=== PATIENT | male | born 1940 | race Caucasian/White ===

== ENCOUNTER → 2017-09-09 | Day surgery (SDC) | payer OTHER ==
[2017-08-19 12:58] VITALS: Ht 170.2 cm; Wt 104.5 kg
[~2017-09-09] VITALS: Ht 170.2 cm; Wt 104.5 kg
[~2017-09-09] MED LIST: 500ML BSS 0.3ML EPI 1:1000PF IRRIG ONE; ACETAMINOPHEN 325 MG TAB PO PRN; AMVISC PLUS 0.8ML SYRINGE INT OCU ONE; ASPI81TA28 PO; ATROPINE SULFATE 0.1 MG/ML 5ML SYR IV PRN; BSS FLUSH ONE; EpHEDrine SULFATE INJ 50 MG/ML AMP IV PRN; EpINEphrine INJ 1MG/ML AMP 1 MG/ML AMP ONE; FENTANYL CITRATE INJ 50 MCG/1 ML 2 ML VIAL IV PRN; FLUMAZENIL 0.1 MG/1 ML 10 ML VIAL IV PRN; HYDR12.56 PO; HYDROmorphone INJ 2 MG/ML SYR/VIAL IV PRN; LABETALOL HCL IV 5 MG/ML 20ML IV PRN; LACTATED RINGER'S 1000ML 500 ML IV SCH; LIDOCAINE 3.5% OPH GEL PER APPLICATION CHARGE ONE; LIDOCAINE HCL 1% MPF 2 ML VIAL ONE; MEPERIDINE HCL 25 MG/ML CARP IV PRN; MIDAZOLAM HCL 1 MG/ML 2ML VIAL ONE; MULT-506 PO; NALOXONE HCL 0.4 MG/1 ML VIAL/CARP IV PRN; OCUCOAT 1 ML SOLN IO ONE; ONDANSETRON INJ 2 MG/ML 2 ML VIAL IV PRN; PHENYLEPHRINE 100MCG/ML 5ML SYR IV PRN; POVIDONE-IODINE OP SOLN 30 ML BTL ONE; PROPARACAINE 0.5% OP SOLN PER DROP CHARGE OPR SCH; TOBRAMYCIN/DEXAMETHASONE OPH OINT PER APPLN CHARGE ONE
[2017-09-09] MEDS: PHENYLEPHRINE HCL 2.5% OP SOLN PER DROP CHARGE OPR SCH ×2 (08:43→08:49)
[2017-09-09] MEDS: TROPICAMIDE 1% OP SOLN PER DROP CHARGE OPR SCH ×2 (08:44→08:50)
[2017-09-09] MEDS: CYCLOPENTOLATE HCL 1% OP SOLN PER DROP CHARGE OPR SCH ×2 (08:45→08:51)
[2017-09-09] MEDS: KETOROLAC 0.5% OP SOLN PER DROP CHARGE OPR SCH ×2 (08:46→08:52)
[2017-09-09] MEDS: GATIFLOXACIN OP SOLN PER DROP CHARGE OPR SCH ×2 (08:47→08:57)
--- NOTE | 2017-09-09 09:07 | History & Physical Bridge - [place] ---
H&P Re-Evaluation Bridge Note: I have examined the patient, reviewed the History & Physical and in the interval since the performance of the History & Physical I have noted the following changes of clinical significance: Diagnosis: Right Cataract Procedure: Right Cataract Removal with Lens Implant No changes noted
--- NOTE | 2017-09-09 09:49 | [facility] Operative Report ---
Operative Report Date of Service Sep 09, 2017. Operative Report 1. PREOPERATIVE DIAGNOSIS: Cataract of the right eye. 2. POSTOPERATIVE DIAGNOSIS: Same. 3. PROCEDURE: Phacoemulsification with intraocular lens implantation of the right eye. SURGEON: Dr. Umair Rucker. ANESTHESIA: Topical Lidocaine gel, 1% Non- Preserved intracameral Lidocaine, and monitored intravenous sedation. INDICATIONS FOR THE PROCEDURE: The patient is a 77 - year-old male with a history of cataract of the right eye causing significant visual impairment. The details of the proposed procedure were explained to the patient who asked appropriate questions and following discussion of all risks, benefits and alternatives agreed to have the procedure done. 4. OPERATION AND FINDINGS: DESCRIPTION OF PROCEDURE: After informed consent was obtained, the patient was brought to the Operating Room at the [facility]. The patient was placed in a supine position and then the right eye was prepped and draped in the usual sterile fashion for intraocular surgery. A drop of topical Lidocaine gel was placed in the operative eye. A wire lid speculum was then placed in the fornices. A corneal paracentesis was then created temporally. The Non-Preserved Lidocaine was then instilled into the anterior chamber. The anterior chamber was then pressurized with viscoelastic. A 2.0 mm clear corneal incision was then created temporally. A cystotome was inserted into the anterior chamber and used to create a tear in the anterior lens capsule. This capsular tear was then used to create a small flap and the flap was dragged in a counterclockwise direction in order to create a continuous curvilinear capsulorrhexis. Hydrodissection was accomplished with balanced salt solution. Phacoemulsification of the lens nucleus was then performed in a standard [id number] technique. The phaco time was 24 seconds with an average power of 11 %. The remaining cortical material was removed using irrigation aspiration. The capsular bag was then filled with viscoelastic. A [employer]ch [employer] Lomb MI60L +18.5 diopters lens was then loaded into the injector and injected into the capsular bag. The remaining viscoelastic was removed with the irrigation aspiration handpiece. The wound was hydrated and then checked and found to be watertight. The intraocular pressure was checked and found to be adequate. The wire lid speculum was removed and the patient's face was cleaned and dried. TobraDex ointment was placed in the inferior fornix. The patient was discharged to the Recovery Room having tolerated the procedure well. There were no complications. The patient will be seen tomorrow in the office for follow-up. I attest to the content of the Intraoperative Record and any orders documented therein. Any exceptions are noted below.
--- NOTE | 2017-09-09 09:50 | Discharge Instructions-SurgCtr ---
Discharge Instructions Date of Service Sep 09, 2017. Visit Reason for Visit: Cataract Right Eye Discharge Discharge Diagnosis / Problem: cataract Discharge Goals Goal(s): Improve function Activity Recommendations Activity Limitations: per Instructions/Follow-up section Anesthesia . Post Anesthesia Instructions: If you have had General Anesthesia or IV Sedation: * Do not drive today. * Resume driving when surgeon permits. * Do not make important decisions or sign legal documents today. * Call surgeon for: 1. Temperature elevations greater than 101 degrees F. 2. Uncontrollable pain. 3. Excessive bleeding. 4. Persistent nausea and vomiting. 5. Medication intolerance (nausea, vomiting or rash). * For nausea and vomiting use only clear liquids such as: tea, soda, bouillon until nausea subsides, then gradually increase diet as tolerated. * If you have any concerns or questions, call your surgeon's office. If physician is unavailable and it is an emergency, call 911 or go to the nearest emergency room. . Diet Recommendations Home Diet: resume previous diet Procedures Procedures Performed: Right Cataract Phacoemulsification With Intraocular Lens Implant Pending Studies Studies pending at discharge: no Medical Emergencies . Who to Call and When: Medical Emergencies: If at any time you feel your situation is an emergency, please call 911 immediately. . Non-Emergent Contact Non-Emergency issues call your: Pl Sql Programmer . . "Provider Documentation" section prepared by Umair Rucker. .
[2017-09-09 09:51] VITALS: TEMP 36.2
[2017-09-09 10:14] VITALS: BP 137/72; PULSE 64; O2SAT 95
--- NOTE | 2017-09-09 10:16 | Anesthesia Progress Nt - [facility] ---
Anesthesia Post Op Note Date & Time Sep 09, 2017 at 10:16 Vital Signs Pain Intensity: 0 Vital Signs Past 12 Hours Date Time Temp Pulse Resp B/P (MAP) Pulse Ox O2 Delivery O2 Flow Rate FiO2 09/09/17 10:14 64 20 137/72 (93) 95 Room Air 09/09/17 09:51 36.2 60 16 141/80 (100) 96 Room Air 09/09/17 08:38 36.9 65 16 154/85 (108) 94 Room Air Notes Mental Status: alert / awake / arousable, participated in evaluation Pt Amnestic to Procedure: Yes Nausea / Vomiting: adequately controlled Pain: adequately controlled Airway Patency, RR, SpO2: stable & adequate BP & HR: stable & adequate Hydration State: stable & adequate Anesthetic Complications: no major complications apparent
== END | disposition home or self-care (01) ==
LOC: X.SURG 07:50
PROVIDERS: ATTEND Ophthalmology
DX: H25.012 Cortical age-related cataract, left eye (principal); Z79.82 Long term (current) use of aspirin; Z86.010 Personal history of colon polyps; Z82.3 Family history of stroke; Z83.3 Family history of diabetes mellitus; Z83.2 Family history of diseases of the blood and blood-forming organs and certain disorders involving the immune mechanism; I12.9 Hypertensive chronic kidney disease with stage 1 through stage 4 chronic kidney disease, or unspecified chronic kidney disease; N18.3 Chronic kidney disease, stage 3 (moderate); E78.5 Hyperlipidemia, unspecified; G47.33 Obstructive sleep apnea (adult) (pediatric); E66.9 Obesity, unspecified

== ENCOUNTER → 2017-09-23 | Day surgery (SDC) | payer OTHER ==
[2017-09-15 11:51] VITALS: Ht 170.2 cm; Wt 104.5 kg
[~2017-09-23] VITALS: Ht 170.2 cm; Wt 104.5 kg
[~2017-09-23] MED LIST changes: -FENTANYL CITRATE INJ 50 MCG/1 ML 2 ML VIAL IV PRN; -FLUMAZENIL 0.1 MG/1 ML 10 ML VIAL IV PRN; -HYDROmorphone INJ 2 MG/ML SYR/VIAL IV PRN; -LABETALOL HCL IV 5 MG/ML 20ML IV PRN; +LIDOCAINE HCL 2% 2 ML VIAL (20MG/ML) ONE; -MEPERIDINE HCL 25 MG/ML CARP IV PRN; -NALOXONE HCL 0.4 MG/1 ML VIAL/CARP IV PRN; -PHENYLEPHRINE 100MCG/ML 5ML SYR IV PRN; +PROPARACAINE 0.5% OP SOLN PER DROP CHARGE OPL SCH; -PROPARACAINE 0.5% OP SOLN PER DROP CHARGE OPR SCH; +PROPOFOL IV EMULSION 10 MG/ML 20 ML VIAL IV ONE
[2017-09-23] MEDS: GATIFLOXACIN OP SOLN PER DROP CHARGE OPL SCH ×2 (08:48→09:08)
[2017-09-23] MEDS: PHENYLEPHRINE HCL 2.5% OP SOLN PER DROP CHARGE OPL SCH ×2 (08:54→08:59)
[2017-09-23] MEDS: TROPICAMIDE 1% OP SOLN PER DROP CHARGE OPL SCH ×2 (08:55→09:00)
[2017-09-23] MEDS: CYCLOPENTOLATE HCL 1% OP SOLN PER DROP CHARGE OPL SCH ×2 (08:56→09:01)
[2017-09-23] MEDS: KETOROLAC 0.5% OP SOLN PER DROP CHARGE OPL SCH ×2 (08:57→09:02)
--- NOTE | 2017-09-23 09:47 | History & Physical Bridge - [place] ---
H&P Re-Evaluation Bridge Note: I have examined the patient, reviewed the History & Physical and in the interval since the performance of the History & Physical I have noted the following changes of clinical significance: No changes noted
--- NOTE | 2017-09-23 10:20 | [facility] Operative Report ---
Operative Report Date of Service Sep 23, 2017. Operative Report 1. PREOPERATIVE DIAGNOSIS: Cataract of the left eye. 2. POSTOPERATIVE DIAGNOSIS: Same. 3. PROCEDURE: Phacoemulsification with intraocular lens implantation of the left eye. SURGEON: Dr. Umair Rucker. ANESTHESIA: Topical Lidocaine gel, 1% Non- Preserved intracameral Lidocaine, and monitored intravenous sedation. INDICATIONS FOR THE PROCEDURE: The patient is a 77 - year-old male with a history of cataract of the left eye causing significant visual impairment. The details of the proposed procedure were explained to the patient who asked appropriate questions and following discussion of all risks, benefits and alternatives agreed to have the procedure done. 4. OPERATION AND FINDINGS: DESCRIPTION OF PROCEDURE: After informed consent was obtained, the patient was brought to the Operating Room at the [facility]. The patient was placed in a supine position and then the left eye was prepped and draped in the usual sterile fashion for intraocular surgery. A drop of topical Lidocaine gel was placed in the operative eye. A wire lid speculum was then placed in the fornices. A corneal paracentesis was then created temporally. The Non-Preserved Lidocaine was then instilled into the anterior chamber. The anterior chamber was then pressurized with viscoelastic. A 2.0 mm clear corneal incision was then created temporally. A cystotome was inserted into the anterior chamber and used to create a tear in the anterior lens capsule. This capsular tear was then used to create a small flap and the flap was dragged in a counterclockwise direction in order to create a continuous curvilinear capsulorrhexis. Hydrodissection was accomplished with balanced salt solution. Phacoemulsification of the lens nucleus was then performed in a standard [id number] technique. The phaco time was 22 seconds with an average power of 11 %. The remaining cortical material was removed using irrigation aspiration. The capsular bag was then filled with viscoelastic. A Bausch [employer] Lomb MI60L +14.0 diopters lens was then loaded into the injector and injected into the capsular bag. The remaining viscoelastic was removed with the irrigation aspiration handpiece. The wound was hydrated and then checked and found to be watertight. The intraocular pressure was checked and found to be adequate. The wire lid speculum was removed and the patient's face was cleaned and dried. TobraDex ointment was placed in the inferior fornix. The patient was discharged to the Recovery Room having tolerated the procedure well. There were no complications. The patient will be seen tomorrow in the office for follow-up. I attest to the content of the Intraoperative Record and any orders documented therein. Any exceptions are noted below.
--- NOTE | 2017-09-23 10:21 | Discharge Instructions-SurgCtr ---
Discharge Instructions Date of Service Sep 23, 2017. Visit Reason for Visit: Cataract Left Eye Discharge Discharge Diagnosis / Problem: cataract Discharge Goals Goal(s): Improve function Activity Recommendations Activity Limitations: per Instructions/Follow-up section Anesthesia . Post Anesthesia Instructions: If you have had General Anesthesia or IV Sedation: * Do not drive today. * Resume driving when surgeon permits. * Do not make important decisions or sign legal documents today. * Call surgeon for: 1. Temperature elevations greater than 101 degrees F. 2. Uncontrollable pain. 3. Excessive bleeding. 4. Persistent nausea and vomiting. 5. Medication intolerance (nausea, vomiting or rash). * For nausea and vomiting use only clear liquids such as: tea, soda, bouillon until nausea subsides, then gradually increase diet as tolerated. * If you have any concerns or questions, call your surgeon's office. If physician is unavailable and it is an emergency, call 911 or go to the nearest emergency room. . Diet Recommendations Home Diet: resume previous diet Procedures Procedures Performed: Left Cataract Phacoemulsification With Intraocular Lens Implant Pending Studies Studies pending at discharge: no Medical Emergencies . Who to Call and When: Medical Emergencies: If at any time you feel your situation is an emergency, please call 911 immediately. . Non-Emergent Contact Non-Emergency issues call your: Property Management Assistant . . "Provider Documentation" section prepared by Umair Rucker. .
[2017-09-23 10:24] VITALS: BP 124/65; PULSE 66; TEMP 37; O2SAT 96
--- NOTE | 2017-09-23 10:40 | Anesthesia Progress Nt - [facility] ---
Anesthesia Post Op Note Date & Time Sep 23, 2017 at 10:40 Vital Signs Pain Intensity: 0 Vital Signs Past 12 Hours Date Time Temp Pulse Resp B/P (MAP) Pulse Ox O2 Delivery O2 Flow Rate FiO2 09/23/17 10:24 37.0 66 12 124/65 (84) 96 Room Air 09/23/17 08:47 36.7 64 16 150/84 (106) 93 Room Air Notes Mental Status: alert / awake / arousable, participated in evaluation Pt Amnestic to Procedure: Yes Nausea / Vomiting: adequately controlled Pain: adequately controlled Airway Patency, RR, SpO2: stable & adequate BP & HR: stable & adequate Hydration State: stable & adequate Anesthetic Complications: no major complications apparent
== END | disposition home or self-care (01) ==
LOC: X.SURG 08:22
PROVIDERS: ATTEND Ophthalmology
DX: H25.012 Cortical age-related cataract, left eye (principal); I12.9 Hypertensive chronic kidney disease with stage 1 through stage 4 chronic kidney disease, or unspecified chronic kidney disease; N18.3 Chronic kidney disease, stage 3 (moderate); E78.5 Hyperlipidemia, unspecified; Z79.82 Long term (current) use of aspirin; G47.33 Obstructive sleep apnea (adult) (pediatric); Z99.89 Dependence on other enabling machines and devices; E66.9 Obesity, unspecified